=== PATIENT | male | born 1960 | race Caucasian/White ===

== ENCOUNTER → 2022-01-12 | Day surgery (SDC) | payer OTHER ==
[~2022-01-12] VITALS: Ht 185.4 cm; Wt 122.9 kg
[~2022-01-12] MED LIST: AMLODIPINE BESY10 MG PO; BASAGLAR K100 UNIT/1 SC; BUPROPION XL300 MG PO; DESYREL50 MG PO; DICLOFENAC SODI50 MG PO; JARDIANCE25 MG PO; LANTUS SOL100 UNIT/1 SC; LISINOPRIL-HCT1 EAC2 PO; METFORMIN HCL1000 MG PO; NEURONTIN300 MG PO; OXYBUTYNIN CHLOR5 M1 PO; OZEMPIC1 MG/0.71 SC; PULMICORT0.5 MG/21 INH; ROSUVASTATIN CA20 MG PO; TESTOSTERO200 MG/1 M IM; VENLAFAXINE H37.5 M1 PO
[2022-01-12 10:06] LABS: HCT 55.5 % (42.0-52.0); HGB 18.5 g/dl (13.2-18.0); MCH 28.2 pg (25.0-31.0); MCHC 33.3 g/dL (32.0-36.0); MCV 84.5 fL (78.0-100.0); MPV 9.5 fL (6.0-9.5); RBC 6.57 M/uL (4.70-6.00); RDW 14.8 % (11.5-14.0); WBC 7.2 K/uL (4.0-10.5)
[2022-01-12 10:43] LABS: ALBUMIN 3.6 g/dL (3.4-5.0); BILIRUBIN - TOTAL 0.8 mg/dL (0.2-1.0); BUN/CREAT RATIO (CALC) 17.9 RATIO; CREATININE 0.84 mg/dL (0.67-1.17); GLOBULIN (CALCULATION) 3.7 g/dL; TOTAL PROTEIN 7.3 g/dL (6.4-8.2)
== END | disposition home or self-care (01) ==
LOC: FAS 08:30
PROVIDERS: Surgery
DX: Z12.11 Encounter for screening for malignant neoplasm of colon (principal); K57.30 Diverticulosis of large intestine without perforation or abscess without bleeding; E11.9 Type 2 diabetes mellitus without complications; I10 Essential (primary) hypertension
CPT/HCPCS: 36415; 80053; J1610; J2250; J2704; J7120